=== PATIENT | female | born 1945 | race Caucasian/White ===

== ENCOUNTER 2016-11-20 04:57 | Observation (INO) | payer BC, OTHER ==
[~2016-11-20] VITALS: Ht 175.3 cm; Wt 72.7 kg
[2016-11-20] VITALS (13 sets, daily range): BP systolic 134–194; BP diastolic 65–96; PULSE 51–75; RESP 16–20; TEMP 96.4–98; O2SAT 96–99
[~2016-11-20 04:57] MED LIST: Z.0.NO CURRENT MEDS
[2016-11-20] MEDS ORDERED: ASPI81CH37 CHEW (05:14)
[2016-11-20] MEDS ORDERED: SODIUM CHLORIDE 0.9% FLUSH 5 ML FLUSH IVF PRN ×2 (05:30→06:45)
[2016-11-20] MEDS ORDERED: ASPIRIN 325 MG TAB PO ONE (05:30)
--- NOTE | 2016-11-20 05:36 | PD ---
HPI Chief Complaint: Chest Pain Time Seen by Provider: 05:30 Travel History International Travel<30 days: No Contact w/Intl Traveler<30days: No Traveled to known affect area: No History of Present Illness HPI The patient is a 71-year-old female that has no history of heart disease who complains of a chest pressure in the left anterior axillary area beginning yesterday p.m. The pain lasted only 5-10 seconds. She has not had a stress test since 2002. The patient has slight nausea but denies any shortness of breath, diaphoresis. It sometimes feels like it may radiate slightly to the left arm. The patient does not have any history of hypertension, elevated cholesterol or diabetes. She does not smoke. She is physically active and plays [employer] ball frequently. She denies any syncopal or near syncopal spells. PFSH Past Medical History Diminished Hearing: No Tetanus Vaccination: Unknown Influenza Vaccination: Yes Menopausal: Yes Past Surgical History Appendectomy: Yes Social History Alcohol Use: No Tobacco Use: No Substance Use: No Allergies-Medications (Allergen,Severity, Reaction): Coded Allergies: No Known Allergies (Verified , 11/20/16) Reported Meds & Prescriptions Reported Meds & Active Scripts Active Reported Aspirin Low Dose (Aspirin) 81 Mg Chew 81 Mg CHEW DAILY Review of Systems Except as stated in HPI: all other systems reviewed are Neg Physical Exam Narrative GENERAL: The patient is alert, oriented 3 in no apparent distress at this time. Her vital signs show blood pressure 194/84 but otherwise normal. SKIN: Warm and dry. HEAD: Atraumatic. Normocephalic. EYES: Pupils equal and round. No scleral icterus. No injection or drainage. ENT: No nasal bleeding or discharge. Mucous membranes pink and moist. NECK: Trachea midline. No JVD. CARDIOVASCULAR: Regular rate and rhythm. No murmur appreciated. RESPIRATORY: No accessory muscle use. Clear to auscultation. Breath sounds equal bilaterally. I cannot reproduce the patient's chest pain by pressing on the chest wall. GASTROINTESTINAL: Abdomen soft, non-tender, nondistended. Hepatic and splenic margins not palpable. MUSCULOSKELETAL: No obvious deformities. No clubbing. No cyanosis. No edema. NEUROLOGICAL: Awake and alert. No obvious cranial nerve deficits. Motor grossly within normal limits. Normal speech. PSYCHIATRIC: Appropriate mood and affect; insight and judgment normal. Data Data Last Documented VS Vital Signs Date Time Temp Pulse Resp B/P Pulse Ox O2 Delivery O2 Flow Rate FiO2 11/20/16 06:15 68 18 153/75 96 Room Air 11/20/16 05:12 97.5 Orders Electrocardiogram (11/20/16 05:30) Complete Blood Count With Diff (11/20/16 05:30) Comprehensive Metabolic Panel (11/20/16 05:30) Magnesium (Mg) (11/20/16 05:30) Prothrombin Time / Inr (Pt) (11/20/16 05:30) Act Partial Throm Time (Ptt) (11/20/16 05:30) Troponin I (11/20/16 05:30) Ecg Monitoring (11/20/16 05:30) Bilateral Bp Monitoring (11/20/16 05:30) Iv Access Insert/Monitor (11/20/16 05:30) Oximetry (11/20/16 05:30) Oxygen Administration (11/20/16 05:30) Aspirin (Aspirin) (11/20/16 05:30) Sodium Chloride 0.9% Flush (Ns Flush) (11/20/16 05:30) Chest, Pa & Lat (11/20/16 05:30) Nitroglycerin Sl (Nitrostat Sl) (11/20/16 05:45) Labs Laboratory Tests Test 11/20/16 05:20 White Blood Count 4.6 TH/MM3 Red Blood Count 5.31 MIL/MM3 Hemoglobin 14.9 GM/DL Hematocrit 45.2 % Mean Corpuscular Volume 85.2 FL Mean Corpuscular Hemoglobin 28.2 PG Mean Corpuscular Hemoglobin 33.1 % Concent Red Cell Distribution Width 12.5 % Platelet Count 216 TH/MM3 Mean Platelet Volume 8.6 FL Neutrophils (%) (Auto) 42.9 % Lymphocytes (%) (Auto) 39.5 % Monocytes (%) (Auto) 10.5 % Eosinophils (%) (Auto) 6.6 % Basophils (%) (Auto) 0.5 % Neutrophils # (Auto) 2.0 TH/MM3 Lymphocytes # (Auto) 1.8 TH/MM3 Monocytes # (Auto) 0.5 TH/MM3 Eosinophils # (Auto) 0.3 TH/MM3 Basophils # (Auto) 0.0 TH/MM3 CBC Comment DIFF FINAL Differential Comment Prothrombin Time 10.7 SEC Prothromb Time International 1.0 RATIO Ratio Activated Partial 27.5 SEC Thromboplast Time Sodium Level 140 MEQ/L Potassium Level 3.8 MEQ/L Chloride Level 105 MEQ/L Carbon Dioxide Level 27.5 MEQ/L Anion Gap 8 MEQ/L Blood Urea Nitrogen 15 MG/DL Creatinine 0.84 MG/DL Estimat Glomerular Filtration 67 ML/MIN Rate Random Glucose 167 MG/DL Calcium Level 9.0 MG/DL Magnesium Level 2.1 MG/DL Total Bilirubin 0.5 MG/DL Aspartate Amino Transf 13 U/L (AST/SGOT) Alanine Aminotransferase 14 U/L (ALT/SGPT) Alkaline Phosphatase 103 U/L Troponin I LESS THAN 0.02 NG/ML Total Protein 7.8 GM/DL Albumin 4.1 GM/DL [facility] Medical Decision Making Medical Screen Exam Complete: Yes Emergency Medical Condition: Yes Medical Record Reviewed: Yes Interpretation(s) The EKG shows sinus rhythm with a rate of 66 and Q waves on septal leads but is otherwise normal. Differential Diagnosis Chest pain etiology undetermined, chest wall pain, pleuritic pain, esophageal pain, gastrointestinal pain, acute cord syndromeunlikely Narrative Course The patient has chest pain etiology undetermined Plan: The patient is not had a stress test since 2002. She is going to get a stress test, she believes she can do the treadmill. Physician Communication Physician Communication I discussed the patient with Dr. Chen. Diagnosis Primary Impression: Chest pain of unknown etiology Admitting Information Admitting Physician Requests: Observation Sam Sanabria MD Nov 20, 2016 05:36
[2016-11-20] MEDS: NITROGLYCERIN 0.4 MG SL 25 TABS/BTL SL SCH ×3 (05:49→06:05)
[2016-11-20 05:57] LABS: BASOPHIL % 0.5 % (0.0-2.0); EOSINOPHIL # 0.3 TH/MM3 (0-0.4); EOSINOPHIL % 6.6 % (0.0-4.0); HEMATOCRIT 45.2 % (35.0-46.0); HEMO FLAGS DIFF FINAL; LYMPH % 39.5 % (9.0-44.0); LYMPHOCYTE # 1.8 TH/MM3 (1.0-4.8); MEAN CELL VOLUME 85.2 FL (80.0-100.0); MEAN CORPUSCULAR HEMOGLOBIN 28.2 PG (27.0-34.0); MEAN CORPUSCULAR HGB CONC 33.1 % (32.0-36.0); MONO % 10.5 % (0.0-8.0); NEUT % 42.9 % (16.0-70.0); PLATELET COUNT 216 TH/MM3 (150-450); RED BLOOD COUNT 5.31 MIL/MM3 (4.00-5.30); RED CELL DISTRIBUTION WIDTH 12.5 % (11.6-17.2); WHITE BLOOD COUNT 4.6 TH/MM3 (4.0-11.0)
[2016-11-20 06:01] LABS: CHLORIDE 105 MEQ/L (98-107); POTASSIUM 3.8 MEQ/L (3.5-5.1); SODIUM (NA) 140 MEQ/L (136-145)
[2016-11-20 06:05] LABS: ANION GAP 8 MEQ/L (5-15); BICARBONATE 27.5 MEQ/L (21.0-32.0); BLOOD UREA NITROGEN 15 MG/DL (7-18); MAGNESIUM 2.1 MG/DL (1.5-2.5)
[2016-11-20 06:08] LABS: ALT (GPT) 14 U/L (10-53); AST (GOT) 13 U/L (15-37); GLOMERULAR FILTRATION RATE 67 ML/MIN (>89)
[2016-11-20 06:10] LABS: TOTAL BILIRUBIN ADULT 0.5 MG/DL (0.2-1.0)
[2016-11-20 06:11] LABS: ALKALINE PHOSPHATASE 103 U/L (45-117)
[2016-11-20 06:13] LABS: APTT (PATIENT) 27.5 SEC (24.3-30.1); PROTHROMBIN TIME - PATIENT 10.7 SEC (9.8-11.6)
--- NOTE | 2016-11-20 06:49 | RADHPO ---
EXAM DATE/TIME: 11/20/2016 06:20 [facility] COMPARISON: No previous studies available for comparison. INDICATIONS : Chest pain. MEDICAL HISTORY : None. SURGICAL HISTORY : Appendectomy. ENCOUNTER: Initial ACUITY: 1 day PAIN SCORE: 8/10 LOCATION: Bilateral chest FINDINGS: PA and lateral views of the chest demonstrate the lungs to be hyperinflated but clear. No effusions M inimal biapical capping. Heart size is normal. Osseous structures are intact. CONCLUSION: Hyperinflation and minimal biapical capping. No confluent infiltrate. Kalpesh Jessica MD on November 20, 2016 at 6:46 Board Certified Radiologist. This report was verified electronically.
[2016-11-20] MEDS ORDERED: NITROGLYCERIN 0.4 MG SL 25 TABS/BTL SL PRN (07:00)
[2016-11-20] MEDS ORDERED: SODIUM CHLORIDE 0.9% FLUSH 5 ML FLUSH IVF SCH (09:00)
[2016-11-20 10:10] LABS: CREATINE KINASE 35 U/L (26-192)
--- NOTE | 2016-11-20 10:40 | HHI.HP ---
[facility] Service [facility] Primary Care Physician Zay Ramirez M.D. Admission Diagnosis chest pain etiology undetermined Diagnoses: (1) Chest pain of unknown etiology Diagnosis: Principal Chief Complaint: Left-sided chest pain Travel History International Travel<30 Days: No Contact w/Intl Traveler <30 Da: No Traveled to Known Affected Are: No History of Present Illness 71-year-old female with no chronic medical illnesses who is very active and plays pickle ball every day of the week. She states that she normal state of health until she went to bed last night approximately 9 PM. She stated that she had a constant pain located left anterior chest which she describes as a pressure type sensation that was 8/10 on a pain scale and it is in a crescendo type pain that will go down to 5/10. Patient was able to fall asleep and then she will At approximately 11:30 PM and had difficulty falling back to sleep because the pain was constant. The patient came to emergency department for evaluation. She was given nitroglycerin emergency department with short term relief. However patient is still experiencing the pain at 5/10 on a pain scale. She denies any nausea, vomiting, diaphoresis, shortness of breath, dyspnea. Patient has had stress test done in 2002. It was normal at that time. Is recommended by ER physician the patient be observed in the chest pain center for further evaluation management. Review of Systems Constitutional: DENIES: Diaphoretic episodes, Fatigue, Fever, Weight gain, Weight loss, Chills, Dizziness, Change in appetite, Night Sweats Eyes: DENIES: Blurred vision, Diplopia, Eye inflammation, Eye pain, Vision loss , Double Vision Ears, nose, mouth, throat: DENIES: Vertigo, Nasal discharge, Throat pain, Ear Pain, Running Nose, Sinus Pain Respiratory: DENIES: Apneas, Cough, Snoring, Wheezing, Hemoptysis, Sputum production, Shortness of breath Cardiovascular: COMPLAINS OF: Chest pain, DENIES: Palpitations, Syncope, Dyspnea on Exertion, Lower Extremity Edema, Orthopnea Gastrointestinal: DENIES: Abdominal pain, Black stools, Bloody stools, Constipation, Diarrhea, Nausea, Vomiting, Difficulty Swallowing, Anorexia Neurologic: DENIES: Abnormal gait, Headache, Localized weakness, Paresthesias, Seizures, Speech Problems, Tremor, Poor Balance Psychiatric: COMPLAINS OF: Hallucinations, DENIES: Anxiety, Confusion, Mood changes, Depression Past Family Social History Past Medical History No chronic medical illnesses Past Surgical History Appendectomy Reported Medications Reported Meds & Active Scripts Active Reported Aspirin Low Dose (Aspirin) 81 Mg Chew 81 Mg CHEW DAILY Allergies: Coded Allergies: No Known Allergies (Verified , 11/20/16) Family History Reviewed is significant for mother having Alzheimer's disease. Father from cancer. There is no family history of heart disease Social History Patient denies any tobacco, alcohol or illicit drugs Physical Exam Vital Signs Vital Signs Date Time Temp Pulse Resp B/P Pulse Ox O2 Delivery O2 Flow Rate FiO2 11/20/16 08:30 96.6 53 20 134/68 99 11/20/16 08:15 60 16 136/65 97 11/20/16 07:00 98.0 58 16 136/65 97 Room Air 11/20/16 07:00 59 16 Room Air 11/20/16 06:15 68 18 153/75 96 Room Air 11/20/16 06:06 75 18 160/73 97 Room Air 11/20/16 06:02 74 18 153/76 96 Room Air 11/20/16 05:50 72 18 179/96 96 Room Air 11/20/16 05:45 179/96 181/89 11/20/16 05:39 98 Room Air 11/20/16 05:39 98 Room Air 11/20/16 05:15 74 18 98 Room Air 11/20/16 05:12 97.5 74 18 194/84 98 Physical Exam GENERAL: This is a well-nourished, well-developed patient, in no apparent distress. SKIN: No rashes, ecchymoses or lesions. Cool and dry. HEAD: Atraumatic. Normocephalic. No temporal or scalp tenderness. EYES: Pupils equal round and reactive. Extraocular motions intact. No scleral icterus. No injection or drainage. ENT: Nose without bleeding, purulent drainage or septal hematoma. Throat without erythema, tonsillar hypertrophy or exudate. Uvula midline. Airway patent. NECK: Trachea midline. No JVD or lymphadenopathy. Supple, nontender, no meningeal signs. CARDIOVASCULAR: Regular rate and rhythm without murmurs, gallops, or rubs. RESPIRATORY: Clear to auscultation. Breath sounds equal bilaterally. No wheezes , rales, or rhonchi. GASTROINTESTINAL: Abdomen soft, non-tender, nondistended. No hepato-splenomegaly , or palpable masses. No guarding. MUSCULOSKELETAL: Extremities without clubbing, cyanosis, or edema. No joint tenderness, effusion, or edema noted. No calf tenderness. Negative Homans sign bilaterally. NEUROLOGICAL: Awake and alert. Cranial nerves II through XII intact. Motor and sensory grossly within normal limits. Five out of 5 muscle strength in all muscle groups. Normal speech. Laboratory Laboratory Tests Test 11/20/16 11/20/16 05:20 09:07 White Blood Count 4.6 Red Blood Count 5.31 Hemoglobin 14.9 Hematocrit 45.2 Mean Corpuscular Volume 85.2 Mean Corpuscular Hemoglobin 28.2 Mean Corpuscular Hemoglobin 33.1 Concent Red Cell Distribution Width 12.5 Platelet Count 216 Mean Platelet Volume 8.6 Neutrophils (%) (Auto) 42.9 Lymphocytes (%) (Auto) 39.5 Monocytes (%) (Auto) 10.5 Eosinophils (%) (Auto) 6.6 Basophils (%) (Auto) 0.5 Neutrophils # (Auto) 2.0 Lymphocytes # (Auto) 1.8 Monocytes # (Auto) 0.5 Eosinophils # (Auto) 0.3 Basophils # (Auto) 0.0 CBC Comment DIFF FINAL Differential Comment Prothrombin Time 10.7 Prothromb Time International 1.0 Ratio Activated Partial 27.5 Thromboplast Time Sodium Level 140 Potassium Level 3.8 Chloride Level 105 Carbon Dioxide Level 27.5 Anion Gap 8 Blood Urea Nitrogen 15 Creatinine 0.84 Estimat Glomerular Filtration 67 Rate Random Glucose 167 Calcium Level 9.0 Magnesium Level 2.1 Total Bilirubin 0.5 Aspartate Amino Transf 13 (AST/SGOT) Alanine Aminotransferase 14 (ALT/SGPT) Alkaline Phosphatase 103 Troponin I LESS THAN 0.02 LESS THAN 0.02 Total Protein 7.8 Albumin 4.1 Total Creatine Kinase 35 Result Diagram: 11/20/1651911/20/16519 Assessment and Plan Assessment and Plan Chest pain, atypical: Patient presented with atypical left-sided constant/ crescendo type chest discomfort left anterior chest. Patient with increased risk factors include age. Thus far cardiac enzymes are negative for any acute coronary event. Serial EKGs thus far shows sinus bradycardia with septal T- wave changes are nonspecific. Possible incomplete right bundle branch block. No acute changes. Patient states that she cannot pursue a exercise stress test at this time because he does not feel that she is physically able. Will pursue nuclear stress test if patient continues to rule out for any acute coronary event DVT prevention, low risk, early ambulation Written by Jose Sanabria PA-C, acting as scribe for Dr. Ji on 11/20/16 at 1355. The documentation accurately reflects the work and decisions performed face-to- face by Dr. Ji on at 1355. Discharge disposition Discharge home in stable condition if stress test is negative Activity: Ad ju. Diet: Healthy heart diet Medications per medication reconciliation Follow-up with primary medical doctor in one week Jose Sanabria Nov 20, 2016 10:40
[2016-11-20 11:39] LABS: CREATINE KINASE 37 U/L (26-192)
[2016-11-20] MEDS ORDERED: REGADENOSON INJ 0.4 MG/5 ML SYR IV ONE (14:50)
--- NOTE | 2016-11-20 15:13 | EKG ---
Date Performed: 11/20/2016 Time Performed: 09:23:02 PTAGE: 71 years EKG: Sinus bradycardia with sinus arrhythmia. Left axis deviation Incomplete RBBB Poor R wave pr ogression - probable normal variant Septal T wave changes are nonspecific Borderline ECG NO PREVIOUS TRACING DOCTOR: Paul Gaspar Interpretating Date/Time 11/20/2016 15:10:29
--- NOTE | 2016-11-20 17:13 | EKG ---
Date Performed: 11/20/2016 Time Performed: 05:06:24 PTAGE: 71 years EKG: Sinus rhythm . Left anterior fascicular block Possible septal infarct - age undetermined Abnormal ECG NO PREVIOUS TRACING DOCTOR: Paul Gaspar Interpretating Date/Time 11/20/2016 17:11:58
--- NOTE | 2016-11-20 17:19 | RADHPO ---
EXAM DATE/TIME: 11/20/2016 14:36 [facility] COMPARISON: No previous studies available for comparison. INDICATIONS : Left sided chest pain without radiation. Angina. Right bundle branch block. DOSE: 25.4 mCi Tc99m Myoview at stress. 8.5 mCi Tc99m Myoview at rest. 0.4 mg Lexiscan STRESS SYMPTOMS: Lightheaded. EJECTION FRACTION: 69% MEDICAL HISTORY : None SURGICAL HISTORY : Appendectomy. ENCOUNTER: Initial ACUITY: 1 day PAIN SCALE: 8/10 LOCATION: Left chest TECHNIQUE: The patient underwent pharmacologic stress with infusion of prescribed dose. Continuous ECG tracing was monitored during stress. Gated SPECT imaging was performed after stress and conventional SPECT i maging was performed at rest. The examination was performed on a SPECT/CT scanner, both attenuation and non-corrected datasets were reviewed. FINDINGS: DISTRIBUTION: The maximum perfused segment at stress is in the inferior wall. PERFUSION STUDY: There is a small sized mild severity reversible defect involving the apical segment of the inferior w all. No fixed defects are identified. GATED STUDY: There is intact wall motion and thickening without hypokinetic or dyskinetic segments. CONCLUSION: 1. Small size mild severity reversible defect involving the apical segment of the inferior wall. Isch emia is not excluded RISK CATEGORY: Intermediate (1-3% Annual Mortality Rate) Paul Montano MD on November 20, 2016 at 17:14 Board Certified Radiologist. This report was verified electronically.
--- NOTE | 2016-11-21 15:59 | EKG ---
Date Performed: 11/20/2016 Time Performed: 11:10:40 PTAGE: 71 years EKG: Sinus bradycardia with PAC(s). Left axis deviation Possible septal infarct - age undetermin ed Abnormal ECG PREVIOUS TRACING : 11/20/2016 09.23 No significant change from previous tracing noted. DOCTOR: Bonifacio Monteiro Interpretating Date/Time 11/21/2016 15:57:13
--- NOTE | 2016-11-21 16:43 | TR ---
Date Performed: 11/20/2016 Time Performed: 14:38:25 DOCTOR: Laura Andre DRUG LIST: CLINICAL HISTORY: CHEST PAIN REASON FOR TEST: Chest pain REASON FOR ENDING: OBSERVATION: CONCLUSION: Lexiscan stress test was performed under standard four minute protocol. [place]ion[place] e was injected one minute prior to ending the test. No electrocardiographic abormalities were present to suggest ischemia. Nuclear imaging and interpretation are pending. COMMENTS:
== END 2016-11-20 17:15 | disposition home or self-care (01) ==
LOC: PHED 04:57 → PHEDA 06:42 → PH3B 08:21
PROVIDERS: ADMIT Family Medicine; ATTEND Family Medicine
DX: R07.89 Other chest pain (principal); I44.4 Left anterior fascicular block; R00.1 Bradycardia, unspecified; Z79.82 Long term (current) use of aspirin
CPT/HCPCS: 71020; 78452; 80053; 82550; 83735; 84484; 85025; 85610; 85730; 93005; 93017; 99285; A9502; G0378; J2785